=== PATIENT | female | born 1980 | race Two or more races ===

== ENCOUNTER 2021-10-22 16:28 | Observation (INO) | payer MEDICAID, OTHER ==
[~2021-10-22] VITALS: Ht 167.6 cm; Wt 100.2 kg
[2021-10-22 17:12] VITALS: BP 119/74
[2021-10-22] MEDS ORDERED: ACETAMINOPHEN 500 MG TAB PO ONE (17:45)
[2021-10-22] MEDS ORDERED: cefTRIAXone SOD 1,000 MG VL IM ONE (17:45)
[2021-10-22] MEDS ORDERED: ACET-1080 PO (18:06)
[2021-10-22] MEDS ORDERED: AZIT500T66 PO (18:06)
[2021-10-22] MEDS ORDERED: PREN-96 PO (18:59)
[2021-10-22] MEDS ORDERED: guaiFENesin 200 MG/10 ML UD PO ONE (19:45)
[2021-10-22 20:05] LABS: Basophils # (auto) 0 10 ^3/uL (0-0.2); Basophils % (auto) 0.8 % (0.0-2.0); Eosinophils # (auto) 0 10 ^3/uL (0-0.8); Eosinophils % (auto) 0.6 % (0.0-7.0); Hematocrit 31.7 % (36.0-46.0); Hemoglobin 10.4 g/dL (12.2-16.2); Lymphocytes % (auto) 15.7 % (10.0-50.0); Mean Corpuscular Hemoglobin 28.6 pg (28.0-32.0); Mean Corpuscular Hgb Conc. 32.7 g/dL (32.0-36.0); Mean Corpuscular Volume 87.2 fL (80.0-100.0); Monocytes # (auto) 0.3 10 ^3/uL (0-1.3); Monocytes % (auto) 4.9 % (0.0-12.0); Neutrophils # (auto) 4.9 10 ^3/uL (1.6-8.6); Nucleated Red Blood Cells % 0.1 %; Red Blood Cells 3.64 10^6/uL (4.0-5.20); Red Cell Distribution Width 18.8 % (11.8-14.3); White Blood Cell 6.3 10^3/uL (4.4-10.8)
[2021-10-22 20:09] LABS: Urine Bacteria FEW /hpf (None Seen); Urine Blood Negative /uL (Negative); Urine Specific Gravity 1.004 (1.001-1.035); Urine WBC 2 /hpf (0 - 5)
[2021-10-22 20:17] LABS: Albumin 2.3 g/dL (3.4-5.0); Calcium 8.7 mg/dL (8.5-10.1); Potassium 3.2 mmol/L (3.5-5.1)
[2021-10-22 20:19] LABS: INR 0.92 (0.9-1.15); Partial Thromboplastin Time 28.2 sec (24.6-33.4)
[2021-10-22 20:20] LABS: BUN/Creatinine Ratio 7.9; Bilirubin, Total 0.4 mg/dL (0.2-1.0); Total Protein 6.6 g/dL (6.4-8.2)
[2021-10-22 20:22] LABS: Amphetamine Screen, Urine NEGATIVE (NEGATIVE); Barbiturate Scree,Urine NEGATIVE (NEGATIVE); Benzodiazephine Screen, Urine NEGATIVE (NEGATIVE); Cannabinoid Screen, Urine NEGATIVE (NEGATIVE); Cocaine Screen, Urine NEGATIVE (NEGATIVE); Opiate Scree,Urine NEGATIVE (NEGATIVE); Phencyclidine Screen, Urine NEGATIVE (NEGATIVE)
[2021-10-24 07:06] LABS: Rubella Antibodies, IgG <0.90 index (Immune >0.99)
[2021-10-24 08:06] LABS: RPR Non Reactive (Non Reactive)
== END 2021-10-22 21:32 | disposition home or self-care (01) ==
LOC: ER 16:28 → LDRP 18:20
PROVIDERS: ADMIT Obstetrics & Gynecology; ATTEND Obstetrics & Gynecology
DX: O98.513 Other viral diseases complicating pregnancy, third trimester (principal); U07.1 COVID-19; O09.529 Supervision of elderly multigravida, unspecified trimester; O99.343 Other mental disorders complicating pregnancy, third trimester; F41.9 Anxiety disorder, unspecified; Z3A.35 35 weeks gestation of pregnancy
CPT/HCPCS: 36415; 59025; 76805; 80053; 80307; 81001; 81002; 85025; 85610; 85730; 86592; 86703; 86762; 86850; 86900; 86901; 87340; 87491; 87591; 94760; 96372; 99284; G0378; J0696

== ENCOUNTER 2021-11-21 10:11 | Inpatient (IN) | payer MEDICAID ==
[~2021-11-21] VITALS: Ht 170.2 cm; Wt 99.8 kg
[2021-11-21] VITALS (8 sets, daily range): BP systolic 106–129; BP diastolic 64–73
[~2021-11-21 10:11] MED LIST: ACET-1080 PO; AZIT500T66 PO; PREN-96 PO
[2021-11-21 11:50] LABS: Amphetamine Screen, Urine NEGATIVE (NEGATIVE); Barbiturate Scree,Urine NEGATIVE (NEGATIVE); Benzodiazephine Screen, Urine NEGATIVE (NEGATIVE); Cannabinoid Screen, Urine NEGATIVE (NEGATIVE); Cocaine Screen, Urine NEGATIVE (NEGATIVE); Opiate Scree,Urine NEGATIVE (NEGATIVE); Phencyclidine Screen, Urine NEGATIVE (NEGATIVE)
[2021-11-21] MEDS ORDERED: SODIUM CITR/CITRIC ACID ORAL SOLN 30 ML PO ONE (12:15)
[2021-11-21] MEDS ORDERED: LACTATED RINGER'S 1,000 ML IV ONE (12:15)
[2021-11-21] MEDS ORDERED: METOCLOPRAMIDE HCL 5MG/ml INJ 2ml VIAL IV ONE (12:15)
[2021-11-21 13:04] LABS: Basophils # (auto) 0.1 10 ^3/uL (0-0.2); Basophils % (auto) 0.8 % (0.0-2.0); Eosinophils # (auto) 0.1 10 ^3/uL (0-0.8); Hematocrit 36.7 % (36.0-46.0); Lymphocytes # (auto) 2.1 10 ^3/uL (0.4-5.4); Lymphocytes % (auto) 22.5 % (10.0-50.0); Mean Corpuscular Hemoglobin 29.1 pg (28.0-32.0); Mean Corpuscular Hgb Conc. 32.7 g/dL (32.0-36.0); Mean Corpuscular Volume 89.1 fL (80.0-100.0); Monocytes # (auto) 0.4 10 ^3/uL (0-1.3); Monocytes % (auto) 3.9 % (0.0-12.0); Neutrophils # (auto) 6.7 10 ^3/uL (1.6-8.6); Neutrophils % (auto) 71.8 % (37.0-80.0); Nucleated Red Blood Cells % 0.1 %; Red Blood Cells 4.12 10^6/uL (4.0-5.20); Red Cell Distribution Width 18.5 % (11.8-14.3); White Blood Cell 9.4 10^3/uL (4.4-10.8)
[2021-11-21 13:21] LABS: INR 0.86 (0.9-1.15); Partial Thromboplastin Time 28.9 sec (24.6-33.4)
[2021-11-21 13:26] LABS: Potassium 3.7 mmol/L (3.5-5.1)
[2021-11-21 13:29] LABS: Albumin 2.3 g/dL (3.4-5.0); BUN/Creatinine Ratio 14.3; Calcium 9.3 mg/dL (8.5-10.1)
[2021-11-21] MEDS ORDERED: ceFAZolin 2 GM in D5W 5% 100 ML IV ONE (13:30)
[2021-11-21 13:31] LABS: Bilirubin, Total 0.4 mg/dL (0.2-1.0); Total Protein 7.4 g/dL (6.4-8.2)
[2021-11-21 14:09] LABS: Urine Bacteria FEW /hpf (None Seen); Urine Blood Negative /uL (Negative); Urine Specific Gravity 1.011 (1.001-1.035); Urine WBC 10 /hpf (0 - 5)
[2021-11-21] MEDS: LACTATED RINGER'S 1,000 ML IV SCH (17:02)
[2021-11-21] MEDS ORDERED: TETRACAINE 1% INJ 2 ML VIAL IJ ONE (19:02)
[2021-11-21] MEDS ORDERED: MORPHINE SULF PF 5 MG/10 ML VIAL ONE (19:07)
[2021-11-21] MEDS ORDERED: ceFAZolin 1GM/50ML 50 ML IV SCH (19:30)
[2021-11-21] MEDS ORDERED: SODIUM CHLORIDE 0.9% 1,000 ML IV SCH (19:30)
[2021-11-21] MEDS ORDERED: ONDANSETRON HCL 4 MG/2 ML VIAL IV PRN ×2 (19:30→21:00)
[2021-11-21] MEDS ORDERED: MORPHINE SULFATE 4 MG/ML SYR/VIAL IV PRN (19:30)
[2021-11-21] MEDS ORDERED: NS/OXYTOCIN 20UNITS 1,000 ML IV SCH (19:30)
[2021-11-21] MEDS ORDERED: ePHEDrine SULFATE 50 MG/ML AMP ONE (20:47)
[2021-11-21] MEDS ORDERED: ONDANSETRON HCL 4 MG/2 ML VIAL ONE ×2 (20:48)
[2021-11-21] MEDS ORDERED: NALBUPHINE HCL 10 MG/1ml INJECTION SUBCUT ONE (21:00)
[2021-11-21] MEDS ORDERED: DexAMETHasone SOD PHOS 10MG/1ML VIAL INJ IV PRN (21:00)
[2021-11-21] MEDS ORDERED: diphenhdrAMINE HCL 50 MG/1 ML VL IV PRN (21:00)
[2021-11-21] MEDS ORDERED: HYDROmorphone HCL 2 MG/ML VL/or syr IV PRN (21:00)
[2021-11-21] MEDS ORDERED: NALOXONE HCL 0.4 MG/ML VIAL IV PRN (21:00)
[2021-11-22] VITALS (20 sets, daily range): BP systolic 96–149; BP diastolic 46–88
[2021-11-22] MEDS: ceFAZolin 1GM/50ML 50 ML IV SCH ×3 (03:47→20:02)
[2021-11-22] MEDS: LACTATED RINGER'S 1,000 ML IV SCH ×2 (04:02→14:41)
[2021-11-22 06:06] LABS: RPR Non Reactive (Non Reactive)
[2021-11-22 07:09] LABS: Basophils # (auto) 0.1 10 ^3/uL (0-0.2); Basophils % (auto) 0.7 % (0.0-2.0); Eosinophils # (auto) 0 10 ^3/uL (0-0.8); Eosinophils % (auto) 0.2 % (0.0-7.0); Hematocrit 31.7 % (36.0-46.0); Hemoglobin 10.6 g/dL (12.2-16.2); Lymphocytes # (auto) 1.7 10 ^3/uL (0.4-5.4); Lymphocytes % (auto) 17.4 % (10.0-50.0); Mean Corpuscular Hemoglobin 30.2 pg (28.0-32.0); Mean Corpuscular Hgb Conc. 33.6 g/dL (32.0-36.0); Mean Corpuscular Volume 90.1 fL (80.0-100.0); Monocytes # (auto) 0.4 10 ^3/uL (0-1.3); Monocytes % (auto) 3.9 % (0.0-12.0); Neutrophils # (auto) 7.4 10 ^3/uL (1.6-8.6); Neutrophils % (auto) 77.8 % (37.0-80.0); Nucleated Red Blood Cells % 0.1 %; Red Blood Cells 3.52 10^6/uL (4.0-5.20); Red Cell Distribution Width 18.8 % (11.8-14.3); White Blood Cell 9.5 10^3/uL (4.4-10.8)
[2021-11-22] MEDS: KETOROLAC TROMETH 30 MG/ML 1ML VIAL IV PRN ×2 (08:39→18:01)
[2021-11-22] MEDS ORDERED: SODIUM CITR/CITRIC ACID ORAL SOLN 30 ML PO SCH (09:00)
[2021-11-22] MEDS ORDERED: BISACODYL 10 MG RECT SUPP PR PRN ×2 (19:15→20:00)
[2021-11-22] MEDS ORDERED: HYDROcodone-ACET 5/325MG TAB PO PRN ×4 (19:15→20:00)
[2021-11-22] MEDS ORDERED: IBUPROFEN 800 MG TAB PO PRN ×2 (19:15→20:00)
[2021-11-22] MEDS ORDERED: DOCUSATE SOD 100 MG CAP PO SCH (22:00)
[2021-11-22] MEDS ORDERED: SIMETHICONE 80 MG CHEWABLE TABLET PO SCH (22:00)
[2021-11-22] MEDS: DOCUSATE SOD 100 MG CAP PO SCH (22:35)
[2021-11-22] MEDS: SIMETHICONE 80 MG CHEWABLE TABLET PO SCH (22:35)
[2021-11-23 02:30] VITALS: BP 104/68
[2021-11-23] MEDS: SIMETHICONE 80 MG CHEWABLE TABLET PO SCH ×2 (05:32→12:00)
[2021-11-23 07:00] VITALS: BP 123/80
[2021-11-23] MEDS ORDERED: HYDR-4902 PO (07:08)
[2021-11-23] MEDS ORDERED: IBUP800T27 PO (07:08)
[2021-11-23] MEDS ORDERED: CEPH500T PO (07:08)
[2021-11-23] MEDS ORDERED: DOCU-94 PO (07:08)
[2021-11-23] MEDS ORDERED: DOCUSATE CALCIUM 240 MG CAP PO SCH ×2 (10:00)
[2021-11-23 11:32] VITALS: BP 115/74
[2021-11-23] MEDS ORDERED: TETANUS-DIPTH-ACEL PERTUSSIS 0.5ML SYR Tdap IM ONE (13:30)
[2021-11-23] MEDS: DOCUSATE SOD 100 MG CAP PO SCH (15:03)
== END 2021-11-23 14:34 | disposition home or self-care (01) | DRG 540 ==
LOC: UNDOADMOB 10:11 → LDRP 10:11 → OBSVTOIN 11:54 → INTOOBSV 11:54 → LDRP 11-22 00:37
PROVIDERS: ADMIT Obstetrics & Gynecology; ATTEND Obstetrics & Gynecology
PROC: 10D00Z1 Extraction of Products of Conception, Low, Open Approach (ICD-10-PCS; principal; 2021-11-21 19:37)
DX: O32.1XX0 Maternal care for breech presentation, not applicable or unspecified (principal); U07.1 COVID-19; O98.52 Other viral diseases complicating childbirth; Z20.822 Contact with and (suspected) exposure to COVID-19; Z59.01 Sheltered homelessness; Z37.0 Single live birth; Z3A.39 39 weeks gestation of pregnancy
CPT/HCPCS: 36415; 59025; 76805; 80053; 80307; 81001; 81002; 84112; 85025; 85610; 85730; 86592; 86850; 86900; 86901; 90715; 94760; 94762; 96360; 96361; 96365; G0378; J0690; J1885; J2405; J7060